=== PATIENT | female | born 1960 | race Two or more races ===

== ENCOUNTER 2021-05-30 13:54 | Emergency (ER) | payer OTHER ==
[~2021-05-30] VITALS: Ht 152.4 cm; Wt 72.7 kg
[2021-05-30] MEDS ORDERED: BACITRACIN 0.9 GM PACKET OINTMENT TP ONE (15:00)
[2021-05-30] MEDS ORDERED: ACETAMINOPHEN 500 MG TABLET PO ONE (15:30)
[2021-05-30 15:48] VITALS: BP 124/89
== END 2021-05-30 15:48 | disposition home or self-care (01) ==
LOC: EMS 13:57 → EDBD 13:57 → EMS 15:48
DX: T23.101A Burn of first degree of right hand, unspecified site, initial encounter (principal); J45.909 Unspecified asthma, uncomplicated; X10.2XXA Contact with fats and cooking oils, initial encounter; Y93.89 Activity, other specified; Y92.89 Other specified places as the place of occurrence of the external cause; Y99.8 Other external cause status
CPT/HCPCS: 16020; 99282; 99283

== ENCOUNTER 2021-06-19 18:21 | Emergency (ER) | payer OTHER ==
[~2021-06-19] VITALS: Ht 165.1 cm; Wt 54.5 kg
[2021-06-19] MEDS ORDERED: PredniSONE 20 MG TABLET PO ONE (19:30)
[2021-06-19] MEDS ORDERED: KETOROLAC TROMETHAMINE 30 MG/ML VIAL IM ONE (19:30)
[2021-06-19 20:25] VITALS: BP 129/85
== END 2021-06-19 20:34 | disposition home or self-care (01) ==
LOC: EMS 18:22
DX: M26.602 Left temporomandibular joint disorder, unspecified (principal)
CPT/HCPCS: 96372; 99283; J1885; J7512